=== PATIENT | female | born 1995 | race Two or more races ===

== ENCOUNTER 2025-05-20 11:15 | Emergency (ER) | payer OTHER ==
[~2025-05-20] VITALS: Ht 157.5 cm; Wt 72.1 kg
[2025-05-20] MEDS ORDERED: ZOFRAN8 MG PO ×2 (11:47→14:08)
[2025-05-20] MEDS ORDERED: 0.9 % SODIUM CHLORIDE 1,000 ML IV ONE (12:00)
[2025-05-20] MEDS ORDERED: ONDANSETRON HCL 2 MG/ML VIAL IV ONE (12:00)
[2025-05-20] MEDS ORDERED: FAMOtidine 10 MG/ML (4ML VIAL) IV ONE (12:00)
[2025-05-20] MEDS ORDERED: ONDANSETRON HCL 2 MG/ML VIAL ONE (12:39)
[2025-05-20] MEDS ORDERED: FAMOTIDINE/PF 20 MG/2 ML VIAL ONE (12:39)
[2025-05-20 13:44] LABS: BASO % 0.2 % (0.1-1.2); EOS # 0.00 (0.04-0.54); EOS % 0.0 % (0.7-7.0); LYMPH # 1.55 (1.18-3.74); LYMPH % 12.7 % (19.3-53.1); MEAN PLATELET VOLUME 9.50 fl (9.4-12.4); MONO # 0.72 (0.24-0.82); MONO % 5.9 % (4.7-12.5); NEUT # 9.90 (1.56-6.13); NEUT % 80.8 % (34.0-71.1); RED CELL DISTRIBUTION WIDTH 12.2 % (11.6-14.4)
[2025-05-20] MEDS ORDERED: DICLEGIS DR 101 EACH PO (14:08)
[2025-05-20] MEDS ORDERED: PEPCID AC20 MG PO (14:08)
== END 2025-05-20 14:54 | disposition home or self-care (01) ==
LOC: ER 11:16
PROVIDERS: General Practice
DX: O21.0 Mild hyperemesis gravidarum (principal); Z3A.09 9 weeks gestation of pregnancy